=== PATIENT | male | born 1950 | race Caucasian/White ===

== ENCOUNTER 2017-01-09 18:55 | Emergency (ER) | payer MEDICARE, OTHER ==
[~2017-01-09] VITALS: Ht 172.7 cm; Wt 158.8 kg
[2017-01-09] MEDS ORDERED: ATARAX,VISTARIL50 MG PO (19:35)
== END 2017-01-09 19:55 | disposition home or self-care (01) ==
LOC: ED 18:55
DX: L29.9 Pruritus, unspecified (principal); Z86.19 Personal history of other infectious and parasitic diseases

== ENCOUNTER 2017-07-05 06:41 | Emergency (ER) | payer MEDICARE, OTHER ==
[~2017-07-05] VITALS: Ht 170.1 cm; Wt 158.8 kg
[~2017-07-05 06:41] MED LIST: ATARAX,VISTARIL50 MG PO
[2017-07-05 07:40] LABS: BASO % 0.6 % (0.0-1.0); EOS # 0.1 10*3/uL (0.0-0.4); EOS % 2.6 % (1.0-4.0); HEMATOCRIT 39.9 % (42.0-52.0); HEMOGLOBIN 13.7 g/dl (14.0-18.0); LYMPH # 1.3 10*3/uL (1.3-4.4); MEAN CELL VOLUME 86.7 fl (80.0-94.0); MEAN CORPUSCULAR HGB 29.8 pg (27.0-31.0); MEAN CORPUSCULAR HGB CONC 34.3 g/dl (33.0-37.0); MEAN PLATELET VOLUME 10.2 fl (9.6-12.3); MONO # 0.5 10*3/uL (0.1-1.0); MONO % 8.5 % (3.0-9.0); NEUT # 3.3 10*3/uL (2.3-7.9); PLATELET COUNT AUTOMATED 184 10*3/uL (130-400); WHITE BLOOD COUNT 5.3 10*3/uL (4.8-10.8)
[2017-07-05 07:54] LABS: ALBUMIN 3.7 gm/dl (3.1-4.5); ALKALINE PHOSPHATASE 92 U/L (45-117); BUN 19 mg/dl (7-24); CHLORIDE 101 mmol/L (98-107); CREATININE 1.22 mg/dL (0.70-1.30); POTASSIUM 4.1 mmol/L (3.5-5.1); SGOT/AST 463 IU/L (3-35); SGPT/ALT 514 U/L (12-78); SODIUM 135 mmol/L (136-145); TOTAL PROTEIN 7.6 gm/dL (6.4-8.2)
[2017-07-05] MEDS ORDERED: ATARAX,VISTARIL50 MG PO (08:03)
== END 2017-07-05 09:57 | disposition home or self-care (01) ==
LOC: ED 06:41
PROVIDERS: Emergency Medicine
DX: L29.9 Pruritus, unspecified (principal); F10.10 Alcohol abuse, uncomplicated; Z79.899 Other long term (current) drug therapy; Z86.19 Personal history of other infectious and parasitic diseases; Z95.810 Presence of automatic (implantable) cardiac defibrillator

== ENCOUNTER 2017-07-08 14:58 | Inpatient (IN) | payer MEDICARE ==
[~2017-07-08] VITALS: Ht 170.1 cm; Wt 158.9 kg
[2017-07-08 15:07] VITALS: BP 128/79
[2017-07-08 15:40] LABS: HEMATOCRIT 41.4 % (42.0-52.0); HEMOGLOBIN 13.7 g/dl (14.0-18.0); MEAN CELL VOLUME 89.2 fl (80.0-94.0); MEAN CORPUSCULAR HGB 29.5 pg (27.0-31.0); MEAN CORPUSCULAR HGB CONC 33.1 g/dl (33.0-37.0); PLATELET COUNT AUTOMATED 236 10*3/uL (130-400); RED BLOOD COUNT 4.64 10*6/uL (4.50-5.90); RED CELL DISTRI WIDTH 13.6 % (0-14.5); WHITE BLOOD COUNT 7.5 10*3/uL (4.8-10.8)
[2017-07-08 16:09] LABS: BASOPHILS 1 % (0-1); TOTAL CELLS COUNTED 100 #CELLS
[2017-07-08 16:11] LABS: BURR CELLS FEW; PLATELET SUFFICIENCY NORMAL (NORMAL)
[2017-07-08 16:36] LABS: ALBUMIN 3.7 gm/dl (3.1-4.5); ALKALINE PHOSPHATASE 110 U/L (45-117); BUN 14 mg/dl (7-24); CHLORIDE 101 mmol/L (98-107); CREATININE 1.21 mg/dL (0.70-1.30); LIPASE 143 U/L (73-393); POTASSIUM 4.4 mmol/L (3.5-5.1); SGOT/AST 250 IU/L (3-35); SGPT/ALT 604 U/L (12-78); SODIUM 136 mmol/L (136-145); TOTAL PROTEIN 7.7 gm/dL (6.4-8.2)
[2017-07-08 16:37] LABS: TROPONIN I < 0.015 ng/ml (<0.045)
[2017-07-08 19:26] VITALS: BP 128/80
[2017-07-08 20:00] VITALS: BP 117/73
[2017-07-08 20:15] VITALS: BP 114/73; BP 117/73
[2017-07-09] VITALS: BP 124/97
[2017-07-09] MEDS ORDERED: DIGOX125 MCG PO (00:40)
[2017-07-09] MEDS ORDERED: ALDACTONE25 M1 PO (00:41)
[2017-07-09] MEDS ORDERED: CARVEDILOL12.5 MG PO (00:42)
[2017-07-09] MEDS ORDERED: ZESTRIL40 MG PO (00:42)
[2017-07-09] MEDS ORDERED: SPIRIVA RESPIMAT4 GM INH (00:43)
[2017-07-09] MEDS ORDERED: LASIX20 MG PO (00:43)
[2017-07-09] MEDS ORDERED: SYMB160 INH (00:44)
[2017-07-09] MEDS ORDERED: SYNTHROID,LEV125 MCG PO (00:49)
[2017-07-09 08:00] VITALS: BP 114/90
[2017-07-09 08:06] LABS: HEMATOCRIT 40.7 % (42.0-52.0); HEMOGLOBIN 13.6 g/dl (14.0-18.0); MEAN CORPUSCULAR HGB 30.1 pg (27.0-31.0); MEAN CORPUSCULAR HGB CONC 33.4 g/dl (33.0-37.0); MEAN PLATELET VOLUME 10.3 fl (9.6-12.3); PLATELET COUNT AUTOMATED 207 10*3/uL (130-400); RED BLOOD COUNT 4.52 10*6/uL (4.50-5.90); RED CELL DISTRI WIDTH 13.7 % (0-14.5); WHITE BLOOD COUNT 7.1 10*3/uL (4.8-10.8)
[2017-07-09 08:30] LABS: ALBUMIN 3.5 gm/dl (3.1-4.5); ALKALINE PHOSPHATASE 103 U/L (45-117); ATYPICAL LYMPHS 1 % (0-0); BASOPHILS 1 % (0-1); BUN 14 mg/dl (7-24); CHLORIDE 101 mmol/L (98-107); CHOLESTEROL 245 mg/dL (<200); CREATININE 1.14 mg/dL (0.70-1.30); HDL CHOLESTEROL 46 mg/dl (40-60); LDL CHOLESTEROL 172 mg/dL (9-159); PHOSPHOROUS 3.8 mg/dL (2.5-4.9); PLATELET SUFFICIENCY NORMAL (NORMAL); POTASSIUM 4.1 mmol/L (3.5-5.1); SGOT/AST 148 IU/L (3-35); SGPT/ALT 489 U/L (12-78); SODIUM 136 mmol/L (136-145); TOTAL CELLS COUNTED 100 #CELLS; TOTAL PROTEIN 7.4 gm/dL (6.4-8.2); TRIGLYCERIDES 137 mg/dl (<150); VLDL CHOLESTEROL 27 mg/dL (6-40)
[2017-07-09 08:39] LABS: GAMMA GLUTAMYL TRANSPEPTIDASE 898 U/L (15-85)
[2017-07-09] MEDS ORDERED: VITAMIN D-32000 UNI1 PO (14:16)
[2017-07-10 15:07] LABS: HEPATITIS B SURFACE AG Negative (Negative)
[2017-07-11 11:30] LABS: HEPATITIS C VIRUS ANTIBODY >11.0 s/co (0.0-0.9)
== END 2017-07-09 12:15 | disposition home or self-care (01) | DRG 445 ==
LOC: ED 14:58 → EDHOLD 18:26 → 4E 18:48
PROVIDERS: Internal Medicine; Student in an Organized Health Care Education/Training Program
DX: K80.20 Calculus of gallbladder without cholecystitis without obstruction (principal); I50.22 Chronic systolic (congestive) heart failure; E44.0 Moderate protein-calorie malnutrition; E66.01 Morbid (severe) obesity due to excess calories; Z68.43 Body mass index [BMI] 50.0-59.9, adult; J44.9 Chronic obstructive pulmonary disease, unspecified; D64.9 Anemia, unspecified; L29.9 Pruritus, unspecified; R74.0 Nonspecific elevation of levels of transaminase and lactic acid dehydrogenase [LDH]; E80.6 Other disorders of bilirubin metabolism; R73.9 Hyperglycemia, unspecified; I25.10 Atherosclerotic heart disease of native coronary artery without angina pectoris; E55.9 Vitamin D deficiency, unspecified; K76.0 Fatty (change of) liver, not elsewhere classified; Z86.19 Personal history of other infectious and parasitic diseases; Z95.810 Presence of automatic (implantable) cardiac defibrillator; I25.2 Old myocardial infarction; Z79.01 Long term (current) use of anticoagulants

== ENCOUNTER 2018-03-03 10:23 | Emergency (ER) | payer OTHER, MEDICARE ==
[~2018-03-03] VITALS: Ht 170.1 cm; Wt 153.8 kg
--- NOTE | ~2018-03-03 | EKG ---
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
[~2018-03-03 10:23] MED LIST changes: +ALDACTONE25 M1 PO; +CARVEDILOL12.5 MG PO; +DIGOX125 MCG PO; +LASIX20 MG PO; +SPIRIVA RESPIMAT4 GM INH; +SYMB160 INH; +SYNTHROID,LEV125 MCG PO; +VITAMIN D-32000 UNI1 PO; +ZESTRIL40 MG PO
[2018-03-03 10:58] LABS: BILIRUBIN NEGATIVE (NEGATIVE); BLOOD NEGATIVE (NEGATIVE); CLARITY CLEAR (CLEAR); COLOR YELLOW (YELLOW); GLUCOSE 3+ (NEGATIVE); KETONE NEGATIVE (NEGATIVE); LEUKO ESTERASE NEGATIVE (NEGATIVE); NITRITE NEGATIVE (NEGATIVE); PH 5.5 (5.0-9.0); UROBILINOGEN 0.2 E.U./dl (0.2-1.0)
[2018-03-03 11:22] LABS: BASO # 0.1 10*3/uL (0.0-0.1); BASO % 0.8 % (0.0-1.0); EOS # 0.2 10*3/uL (0.0-0.4); EOS % 2.6 % (1.0-4.0); HEMATOCRIT 39.5 % (42.0-52.0); HEMOGLOBIN 13.6 g/dl (14.0-18.0); LYMPH # 1.8 10*3/uL (1.3-4.4); LYMPH % 23.3 % (27.0-41.0); MEAN CELL VOLUME 87.8 fl (80.0-94.0); MEAN CORPUSCULAR HGB 30.2 pg (27.0-31.0); MEAN CORPUSCULAR HGB CONC 34.4 g/dl (33.0-37.0); MEAN PLATELET VOLUME 10.8 fl (9.6-12.3); MONO # 0.6 10*3/uL (0.1-1.0); MONO % 7.8 % (3.0-9.0); NEUT % 63.8 % (47.0-73.0); PLATELET COUNT AUTOMATED 205 10*3/uL (130-400); RED CELL DISTRI WIDTH 13.2 % (0-14.5); WHITE BLOOD COUNT 7.8 10*3/uL (4.8-10.8)
[2018-03-03 11:31] LABS: ACT PARTIAL THROMBO TIME 21.8 SECONDS (20.8-31.5)
[2018-03-03 11:43] LABS: ALBUMIN 3.6 gm/dl (3.1-4.5); ALKALINE PHOSPHATASE 100 U/L (45-117); BUN 24 mg/dl (7-24); CHLORIDE 96 mmol/L (98-107); CREATININE 1.41 mg/dL (0.70-1.30); LIPASE 207 U/L (73-393); POTASSIUM 4.5 mmol/L (3.5-5.1); SGOT/AST 30 IU/L (3-35); SGPT/ALT 63 U/L (12-78); SODIUM 129 mmol/L (136-145); TOTAL PROTEIN 7.7 gm/dL (6.4-8.2)
[2018-03-03 11:44] LABS: TROPONIN I < 0.015 ng/ml (<0.045)
== END 2018-03-03 17:04 | disposition short-term general hospital (02) ==
LOC: ED 10:23
PROVIDERS: Emergency Medicine
DX: G45.9 Transient cerebral ischemic attack, unspecified (principal); E11.65 Type 2 diabetes mellitus with hyperglycemia; J44.9 Chronic obstructive pulmonary disease, unspecified; I25.10 Atherosclerotic heart disease of native coronary artery without angina pectoris; I25.2 Old myocardial infarction; E66.01 Morbid (severe) obesity due to excess calories; I50.20 Unspecified systolic (congestive) heart failure; Z68.43 Body mass index [BMI] 50.0-59.9, adult; Z79.899 Other long term (current) drug therapy; Z95.0 Presence of cardiac pacemaker; Z98.890 Other specified postprocedural states; Z87.891 Personal history of nicotine dependence

== ENCOUNTER 2022-04-04 08:49 | Emergency (ER) | payer OTHER | END 2022-04-04 09:52 | disposition home or self-care (01) | LOC: ED 08:49 | DX: T82.9XXA Unspecified complication of cardiac and vascular prosthetic device, implant and graft, initial encounter (principal); J44.9 Chronic obstructive pulmonary disease, unspecified; E11.9 Type 2 diabetes mellitus without complications; I25.2 Old myocardial infarction; E66.01 Morbid (severe) obesity due to excess calories; I50.9 Heart failure, unspecified; I11.0 Hypertensive heart disease with heart failure; I25.10 Atherosclerotic heart disease of native coronary artery without angina pectoris; Z79.899 Other long term (current) drug therapy; Z86.73 Personal history of transient ischemic attack (TIA), and cerebral infarction without residual deficits; Z87.891 Personal history of nicotine dependence; Z90.89 Acquired absence of other organs; Z98.890 Other specified postprocedural states; Y92.89 Other specified places as the place of occurrence of the external cause ==